=== PATIENT | female | born 1990 | race Caucasian/White ===

== ENCOUNTER 2019-01-08 16:35 | Outpatient (CLI) | payer OTHER ==
--- NOTE | 2019-01-08 18:32 | Non Stress Test Report ---
Non Stress Test Datetime Report Generated by CPN: 01/08/2019 18:32 DEMOGRAPHIC EGA NST: 35.1 INDICATION Indication for Study: Ordered by Provider; Other Indication for Study (NST) Other: cholestasis repeat NST from office VITAL SIGNS Temperature - NST: 98.2 Pulse - NST: 67 RESP - NST: 16 NBPSYS NST: 108 NBPDIA NST: 58 MONITORING Monitor Explained: Monitor Explained; Test Explained; Patient Verbalized Understanding Time on Monitor: 01/08/2019 16:49 Time off Monitor: 01/08/2019 17:22 NST Duration: 33 NST INTERVENTIONS NST Interventions: PO Hydration; Reposition Patient; Vibroacoustic Stim BABY A: [id number] BABY A Movement : Present Contraction Frequency : denies FHR Baseline : 120 Accelerations : 15X15 Decelerations : None Variability : Moderate 6-25bpm NST Review: Meets Criteria for Reactive NST NST Review and Verified By : JACQUELIN Worley Results: Reactive NST REPORT Report Trigger: Send Report
== END 2019-01-08 17:30 | disposition home or self-care (01) ==
LOC: LC 16:35
PROVIDERS: ATTEND Student in an Organized Health Care Education/Training Program
PROC: 4A1HXCZ Monitoring of Products of Conception, Cardiac Rate, External Approach (ICD-10-PCS; principal; 2019-01-08)
DX: Z3A.35 35 weeks gestation of pregnancy (principal)
CPT/HCPCS: 59025

== ENCOUNTER 2019-01-10 14:44 | Outpatient (CLI) | payer OTHER ==
--- NOTE | 2019-01-10 16:29 | Non Stress Test Report ---
Non Stress Test Datetime Report Generated by CPN: 01/10/2019 16:29 DEMOGRAPHIC EGA NST: 35.3 INDICATION Indication for Study: Ordered by Provider; Other Indication for Study (NST) Other: cholestasis, repeat nst from office VITAL SIGNS Temperature - NST: 98.4 Pulse - NST: 73 RESP - NST: 17 NBPSYS NST: 110 NBPDIA NST: 69 MONITORING Monitor Explained: Monitor Explained; Test Explained; Patient Verbalized Understanding Time on Monitor: 01/10/2019 15:12 Time off Monitor: 01/10/2019 16:08 NST Duration: 56 NST INTERVENTIONS NST Interventions: PO Hydration; Reposition Patient; Vibroacoustic Stim Physician Notified NST: NSaurabh, CNM BABY A: [id number] BABY A Movement : Present Contraction Frequency : irregular FHR Baseline : 120 Accelerations : 15X15 Decelerations : None Variability : Moderate 6-25bpm NST Review: Meets Criteria for Reactive NST NST Review and Verified By : Lissette Camp RNDC NST Results: Reactive NST REPORT Report Trigger: Send Report
== END 2019-01-10 16:10 | disposition home or self-care (01) ==
LOC: LC 14:44
PROVIDERS: ATTEND Obstetrics & Gynecology Gynecology
PROC: 4A1HXCZ Monitoring of Products of Conception, Cardiac Rate, External Approach (ICD-10-PCS; principal; 2019-01-10)
DX: O99.613 Diseases of the digestive system complicating pregnancy, third trimester (principal); Z3A.35 35 weeks gestation of pregnancy
CPT/HCPCS: 59025; 87077; 87081

== ENCOUNTER 2019-01-14 21:56 | Inpatient (IN) | payer OTHER ==
[2019-01-14] MEDS ORDERED: DINOPROSTONE 10 MG VAGINAL INSERT.SR PV PRN (22:23)
[2019-01-14] MEDS ORDERED: RINGERS SOLUTION,LACTATED 1,000 ML IV PRN (22:23)
[2019-01-14] MEDS ORDERED: RINGERS SOLUTION,LACTATED 300 ML IV ONE (22:40)
[2019-01-14 23:08] LABS: APPEARANCE,URINE CLOUDY; BILIRUBIN,URINE SMALL (NEGATIVE); COLOR,URINE AMBER; GLUCOSE, URINE NEGATIVE (NEGATIVE); KETONES,URINE NEGATIVE (NEGATIVE); LEUKOCYTE ESTERASE,URINE LARGE (NEGATIVE); NITRITE,URINE NEGATIVE (NEGATIVE); PROTEIN,URINE 30 mg/dL (NEGATIVE); URINE SPECIFIC GRAVITY 1.031
[2019-01-14] MEDS ORDERED: DINOPROSTONE 10 MG VAGINAL INSERT.SR ONE (23:14)
[2019-01-14 23:15] LABS: ABSOLUTE LYMPHOCYTES (AUTO) 1.4 10^3/uL (0.5-4.7); ABSOLUTE MONOCYTES (AUTO) 0.6 10^3/uL (0.1-1.4); ABSOLUTE NEUT (AUTO) 4.7 10^3/uL (1.7-8.2); BASOPHILS % (AUTO) 0.3 % (0-2); EOSINOPHILS % (AUTO) 0.5 % (0-6); HEMATOCRIT 32.2 % (36.0-47.0); HEMOGLOBIN 10.6 g/dL (12.0-15.5); LYMPHOCYTES % (AUTO) 21.1 % (13-45); MEAN CORPUSCULAR HEMOGLOBIN 29.8 pg (27.0-33.4); MEAN CORPUSCULAR VOLUME 90 fl (80-97); MONOCYTES % (AUTO) 8.7 % (3-13); RED BLOOD COUNT 3.57 10^6/uL (3.72-5.28); RED CELL DISTRIBUTION WIDTH 13.7 % (11.5-14.0); SEGMENTED NEUTROPHILS % (AUTO) 69.4 % (42-78); TOTAL CELLS COUNTED % (AUTO) 100 %; WHITE BLOOD COUNT 6.7 10^3/uL (4.0-10.5)
[2019-01-14 23:34] LABS: PLATELET COUNT 165 10^3/uL (150-450)
[2019-01-14 23:36] LABS: URINE AMPHETAMINES SCREEN NEGATIVE; URINE BARBITURATES SCREEN NEGATIVE; URINE BENZODIAZEPINES SCREEN NEGATIVE; URINE COCAINE SCREEN NEGATIVE; URINE MARIJUANA (THC) SCREEN NEGATIVE; URINE METHADONE SCREEN NEGATIVE; URINE PHENCYCLIDINE SCREEN NEGATIVE
[2019-01-15] MEDS ORDERED: ZOLPIDEM TARTRATE 5 MG TABLET ONE (01:37)
[2019-01-15] MEDS ORDERED: ZOLPIDEM TARTRATE 5 MG TABLET PO PRN ×2 (01:38→08:10)
[2019-01-15] MEDS ORDERED: PROMETHAZINE HCL INJ 25 MG/1 ML VIAL ONE (03:08)
[2019-01-15] MEDS ORDERED: NALBUPHINE HCL INJ 10 MG/1 ML AMPULE ONE (03:08)
[2019-01-15] MEDS ORDERED: NALBUPHINE HCL INJ 10 MG/1 ML AMPULE INJ ONE (03:30)
[2019-01-15] MEDS ORDERED: PROMETHAZINE HCL INJ 25 MG/1 ML VIAL IV ONE (03:30)
[2019-01-15] MEDS ORDERED: PENICILLIN G-K 5 MILLION UNIT VIAL ONE (07:16)
[2019-01-15] MEDS ORDERED: OXYTOCIN/NORMAL SALINE 20 UNIT/1,000 ML RTUINJ ONE (07:24)
[2019-01-15] MEDS ORDERED: MISOPROSTOL 0.2 MG TABLET ONE (07:24)
[2019-01-15] MEDS ORDERED: LIDOCAINE 1% INJ-PF (10 MG/ML) 30 ML SDV ONE (07:24)
--- NOTE | 2019-01-15 07:46 | Admission Physical ---
Datetime Report Generated by CPN: 01/15/2019 07:45 CURRENT ADMISSION Chief Complaint: Scheduled Induction of Labor Indication for Induction: Other Indication for Induction- Other: cholestasis of Admit Impression : , Intrauterine ; Induction of Labor Admit Plan: Admit to Unit; Initiate Labor Induction Protocol ALLERGIES Medication Allergies: No Medication Allergies: No Known Allergies (01/14/2019) Latex: No Latex Allergies Food Allergies: none (01/10/19) Environmental Allergies: none (01/10/19) OBSTETRICAL HISTORY EDC: 02/11/2019 00:00 : 1 Para: 0 Term: 0 : 0 SAB: 0 IAB: 0 Ectopic: 0 Livin Cesareans: 0 VBACs: 0 Multiple Births: 0 Gestational Diabetes: No Rh Sensitization: No Incompetent Cervix: No DARWIN: No Infertility: No ART Treatment: No Uterine Anomaly: No IUGR: No Hx Previous C/S: No Macrosomia: No Hx Loss/Stillborn: No PIH: No Hx : No Placenta Previa/Abruption: No Depression/PP Depression: Yes PTL/PROM: No Post Hemorrhage: No Current Procedures: Ultrasound; NST Obstetrical History Comments: g1; IUP at 35.3 with cholestasis, planned induction at 36 weeks. SEE RECORDS Alcohol: No Marijuana : No Cocaine: No Other Illicit Drugs: No Cigarettes: Never Smoker. 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 has hx of depression, currently on prozac for anxiety. INFECTIOUS HISTORY Gonorrhea: No Genital Herpes: No Chlamydia: No Tuberculosis: No Syphilis: No Hepatitis: No HIV/AIDS Exposure: No Rash or Viral Illness: No HPV: No PHYSICAL EXAM General: Normal HEENT: Normal Neurologic: Normal Thyroid: Normal Heart: Normal Lungs: Normal Breast: Normal Back: Normal Abdomen: Normal Genitourinary Exam: Normal Extremities: Normal DTRs: Normal Pelvic Type: Adequate Vital Signs: Reviewed VAGINAL EXAM Dilatation: 2 Effacement: 50 Station: -3 MEMBRANES Pooling: Negative Membranes: Intact FETUS A EGA: 36.1 Monitoring: External US FHR- Baseline: 130 Variability: Moderate 6-25bpm Accelerations: 15X15 Decelerations: None FHR Category: Category I Estimated Weight (gm): 3300 Presentation: Vertex PLANS FOR LABOR AND DELIVERY Labor and Delivery: Plan Pain Management: None Feeding Preference: Formula Benefit of Breast Feed Discussed: Yes Circumcision: N/A INFORMED CONSENT Signature: with User ID: [email or web address]
[2019-01-15] MEDS ORDERED: ACETAMINOPHEN WITH CODEINE #3 TABLET PO PRN ×2 (08:10)
[2019-01-15] MEDS ORDERED: NA PHOS,M-B/NA PHOS,DI-BA (ADULT) 133 ML ENEMA PR PRN (08:10)
[2019-01-15] MEDS ORDERED: PROMETHAZINE HCL 25 MG TABLET PO PRN (08:10)
[2019-01-15] MEDS ORDERED: BENZOCAINE/MENTHOL AEROSOL SPRAY 56 ML TOP PRN (08:10)
[2019-01-15] MEDS ORDERED: DIPHENHYDRAMINE HCL 25 MG CAPSULE PO PRN (08:10)
[2019-01-15] MEDS ORDERED: PROMETHAZINE HCL INJ 25 MG/1 ML VIAL IV PRN (08:10)
[2019-01-15] MEDS ORDERED: GLYCERIN/WITCH HAZEL LEAF 1 EACH MED..WIPE TP PRN (08:10)
[2019-01-15] MEDS ORDERED: DIPH/PERTUSS(ACELL)/TETANUS VAC/PF 0.5 ML SYR (>=10YO) IM PRN (08:10)
[2019-01-15] MEDS ORDERED: ACETAMINOPHEN 650 MG SUPP.RECT PR PRN (08:10)
[2019-01-15] MEDS ORDERED: PROMETHAZINE HCL 25 MG SUPP.RECT PR PRN (08:10)
[2019-01-15] MEDS ORDERED: MEASLES,MUMPS&RUBELLA VACC/PF 0.5 ML VIAL SUBCUT PRN (08:10)
[2019-01-15] MEDS ORDERED: DIBUCAINE 1% OINTMENT 56 GM TP PRN (08:10)
[2019-01-15] MEDS ORDERED: OXYTOCIN/NORMAL SALINE 20 UNIT/1,000 ML RTUINJ IV PRN (08:10)
[2019-01-15] MEDS ORDERED: MAGNESIUM HYDROXIDE SUSP 30 ML UDCUP PO PRN (08:10)
[2019-01-15] MEDS ORDERED: PSEUDOEPHEDRINE HCL 30 MG TABLET PO PRN (08:10)
[2019-01-15] MEDS: DOCUSATE SODIUM 100 MG CAPSULE PO SCH ×2 (11:53→17:19)
[2019-01-15] MEDS: FERROUS SULFATE 325 MG TABLET PO SCH ×2 (11:53→17:19)
[2019-01-15] MEDS: PRENATAL VITAMIN W DHA CAPSULE PO SCH (11:53)
[2019-01-15] MEDS: SENNOSIDES/DOCUSATE 8.6-50 MG 1 EACH TABLET PO SCH (11:53)
[2019-01-15] MEDS: FAMOTIDINE 20 MG TABLET PO SCH ×2 (11:53→21:34)
[2019-01-15] MEDS: IBUPROFEN 800 MG TABLET PO SCH ×2 (14:09→21:35)
[2019-01-16] MEDS: IBUPROFEN 800 MG TABLET PO SCH ×3 (05:41→22:00)
[2019-01-16 06:26] LABS: HEMATOCRIT 31.8 % (36.0-47.0); HEMOGLOBIN 10.6 g/dL (12.0-15.5); MEAN CORPUSCULAR HEMOGLOBIN 30.2 pg (27.0-33.4); MEAN CORPUSCULAR HGB CONC 33.2 g/dL (32.0-36.0); MEAN CORPUSCULAR VOLUME 91 fl (80-97); PLATELET COUNT 120 10^3/uL (150-450); RED CELL DISTRIBUTION WIDTH 13.7 % (11.5-14.0); WHITE BLOOD COUNT 10.8 10^3/uL (4.0-10.5)
[2019-01-16] MEDS: FERROUS SULFATE 325 MG TABLET PO SCH ×2 (09:25→17:41)
[2019-01-16] MEDS: SENNOSIDES/DOCUSATE 8.6-50 MG 1 EACH TABLET PO SCH (09:25)
[2019-01-16] MEDS: DOCUSATE SODIUM 100 MG CAPSULE PO SCH ×2 (09:25→17:41)
[2019-01-16] MEDS: PRENATAL VITAMIN W DHA CAPSULE PO SCH (09:25)
[2019-01-16] MEDS: FAMOTIDINE 20 MG TABLET PO SCH ×2 (09:25→23:34)
--- NOTE | 2019-01-16 16:36 | PDOC PROGRESS REPORT ---
Subjective-OB Progress Note for:: 01/16/19 Subjective: reports bleeding slowing, pain controlled with current meds, denies needs Physical Exam (OB) Vital Signs: Temp Pulse Resp BP Pulse Ox 97.5 F 53 L 15 119/78 97 01/16/19 07:55 01/16/19 07:55 01/16/19 07:55 01/16/19 07:55 01/16/19 07:55 Intake & Output 01/15/19 01/16/19 01/17/19 06:59 06:59 06:59 Intake Total 240 Balance 240 Weight 58.4 kg - Abdomen Description: Soft Hernia Present: No Fundal Description: Firm, Midline Fundal Height: u/u - u/2 - Extremities Lower extremities: Perfecto's sign - neg Calf: Normal, Nontender Objective-Diagnostic Laboratory: 01/16/19 06:20 01/16/19 06:20 WBC 10.8 H RBC 3.50 L Hgb 10.6 L Hct 31.8 L MCV 91 MCH 30.2 MCHC 33.2 RDW 13.7 Plt Count 120 L Assessment and Plan(PN) - Assessment and Plan (1) Normal vaginal delivery Is this a current diagnosis for this admission?: Yes - Time Spent with Patient Time with patient: Less than 15 minutes - Disposition Anticipated Discharge: Home Within: within 24 hours
[2019-01-17] MEDS: IBUPROFEN 800 MG TABLET PO SCH (06:00)
[2019-01-17 09:18] VITALS: BP 127/85
[2019-01-17] MEDS: FERROUS SULFATE 325 MG TABLET PO SCH (10:48)
[2019-01-17] MEDS: DOCUSATE SODIUM 100 MG CAPSULE PO SCH (10:48)
[2019-01-17] MEDS: FAMOTIDINE 20 MG TABLET PO SCH (10:48)
[2019-01-17] MEDS: SENNOSIDES/DOCUSATE 8.6-50 MG 1 EACH TABLET PO SCH (10:48)
[2019-01-17] MEDS: PRENATAL VITAMIN W DHA CAPSULE PO SCH (10:48)
--- NOTE | 2019-01-17 13:03 | PDOC DISCHARGE SUMMARY ---
Final Diagnosis Discharge Date: 01/17/19 Discharge Data - Discharge Medication Home Medications: Ursodiol [Actigall 300 mg Capsule] 300 mg PO TID 01/08/19 Fluoxetine HCl [Prozac] 40 mg PO DAILY 01/10/19 Pnv No.103/Folic/Om3s/Fish Oil [ Gummies] 1 each PO DAILY 01/10/19 Reason(s) for Admission: Induction of Labor Procedures: NST Intrapartum Procedure(s): Spontaneous Vaginal Delivery Laceration-Degree: 1st - Diagnosis Test Laboratory: Temp Pulse Resp BP Pulse Ox 97.7 F 65 16 127/85 H 100 01/17/19 10:28 01/17/19 10:28 01/17/19 10:28 01/17/19 08:43 01/17/19 10:28 01/14/19 01/14/19 01/16/19 22:05 22:05 06:20 RBC 3.57 L 3.50 L Hgb 10.6 L 10.6 L Hct 32.2 L 31.8 L Urine Opiates Screen NEGATIVE - Discharge information/Instructions Discharge Activity: Activity As Tolerated, Balance Activity w/Rest, Pelvic Rest Discharge Diet: Regular Disposition: HOME, SELF-CARE Follow up with: [facility] in: 4, Weeks
--- NOTE | 2019-01-28 08:59 | Delivery Summary ---
Del Sum A-C Datetime Report Generated by CPN: 01/28/2019 08:59 DELIVERY PERSONNEL DELIVERY PERSONNEL: [id number] Delivery Doctor:: Kaylin De Los Santos MD Labor and Delivery Nurse:: Lily Bingham RN Labor and Delivery Nurse:: MANDY [facility] Pharmacy Director:: Kiki Banks RN Neonatal Nurse Practitioner:: GUNNAR Coffey Nursery Nurse:: Kath Dumont RN Nursery Nurse:: Kaylan Severino RN Broom Stitcher/MEDIA ANALYTICS MANAGER: Rosi Hurd ST Additional Personnel: : Ginger Parikh RN MATERNAL INFORMATION Delivery Anesthesia: None Delivery Anesthesia: Local Medications After Delivery: Pitocin Bolus-Please Comment; Cytotec 1000mcg Per Rectum/Vagina Maternal Complications: None LABOR SUMMARY EDC: 02/11/2019 00:00 No. Babies in Womb: 1 LABOR INFORMATION Reason for Induction: Other Reason for Induction- Other: cholestasis Onset of Labor: 01/15/2019 05:00 Complete Dilatation: 01/15/2019 07:20 Cervical Ripening Agents: Cervidil Group B Beta Strep: positive Steroids Given: None MEMBRANES Membranes Rupture Method: Spontaneous Rupture of Membranes: 01/15/2019 07:25 Length of Rupture (hr): 0.03 Amniotic Fluid Color: Clear Amniotic Fluid Amount: Small Amniotic Fluid Odor: None STAGES OF LABOR Stage 1 hr: 2 Stage 1 min: 20 Stage 2 hr: 0 Stage 2 min: 7 Stage 3 hr: 0 Stage 3 min: 3 Total Time in Labor hr: 2 Total Time in Labor min: 30 VAGINAL DELIVERY Episiotomy: None Laceration #1: Perineal Laceration Extension #1: Second Degree Laceration Repair: Yes Laceration Repair Note: 2-0 chromic BABY A INFORMATION Delivery Date/Time: 01/15/2019 07:27 Method of Delivery: Vaginal Born in Route : No : N/A Forceps: N/A Vacuum Extraction: N/A Shoulder Dystocia : No PRESENTATION/POSITION BABY A Presentation: Cephalic Cephalic Presentation: Vertex Breech Presentation: N/A PLACENTA INFORMATION BABY A Placenta Delivery Time : 01/15/2019 07:30 Placenta Method of Delivery: Spontaneous Placenta Status: Delivered SCORES BABY A Heart Rate 1 min: Slow, Below 100 bpm Resp Effort 1 min: Absent Reflex Irritability 1 min: No Response Muscle Tone 1 min: Flaccid Color 1 min: Blue/Pale Resuscitation Effort 1 min: Tactile Stimulation; Oxygen; PPV/NCPAP SCORE 1 MIN: 1 Heart Rate 5 min: >100 bpm Resp Effort 5 min: Slow, Irregular Reflex Irritability 5 min: No Response Muscle Tone 5 min: Some Flexion of Extremities Color 5 min: Blue/Pale Resuscitation Effort 5 min: Tactile Stimulation; Oxygen; PPV/NCPAP SCORE 5 MIN: 4 Heart Rate 10 min: >100 bpm Resp Effort 10 min: Good Cry Reflex Irritability 10 min: [place] Muscle Tone 10 min: Active Motion Color 10 min: Body [place], Extremities Blue SCORE 10 MIN: 8 INFORMATION BABY A Gestational Age at Delivery: 36.0 Gestational Status: Late - 34- 36.6 Weeks Infant Outcome : Liveborn Infant Condition : Stable Sex: Female IDENTIFICATION BABY A Infant Verification Date/Time: 01/15/2019 07:59 ID Band Number: [id number] Mother's Name Verified: Yes RN Verifying : PILLO Additional Verifying Personnel: ELY WEIGHT/LENGTH BABY A Infant Birthweight (gm): 2679 Infant Weight (lb): 5 Infant Weight (oz): 14 Length (in): 19.00 Length (cm): 48.26 CORD INFORMATION BABY A No. Cord Vessels: 3 Nuchal Cord : N/A Suction: Mouth; Nose; Pharynx ASSESSMENT BABY A Complications: Multiple Variable Decels Skin to Skin: Yes (Annotations: briefly) Skin to Skin: Yes Skin to Skin Time (min): 2 Infant Care By: Maribel Dumont/ Coy MAHER Transferred To: NICU SIGNATURES Signature: with User ID: [email or web address]
== END 2019-01-17 14:31 | disposition home or self-care (01) | DRG 805 ==
LOC: LR 21:56 → 2S 01-15 10:27
PROVIDERS: ADMIT Obstetrics & Gynecology; ATTEND Obstetrics & Gynecology
PROC: 4A1HXCZ Monitoring of Products of Conception, Cardiac Rate, External Approach (ICD-10-PCS; 2019-01-14)
PROC: 3E0P7VZ Introduction of Hormone into Female Reproductive, Via Natural or Artificial Opening (ICD-10-PCS; 2019-01-14)
PROC: 10E0XZZ Delivery of Products of Conception, External Approach (ICD-10-PCS; principal; 2019-01-15)
PROC: 0KQM0ZZ Repair Perineum Muscle, Open Approach (ICD-10-PCS; 2019-01-15)
DX: O26.62 Liver and biliary tract disorders in childbirth (principal); K83.1 Obstruction of bile duct; Z37.0 Single live birth; O99.343 Other mental disorders complicating pregnancy, third trimester; F32.9 Major depressive disorder, single episode, unspecified; F41.9 Anxiety disorder, unspecified; O99.824 Streptococcus B carrier state complicating childbirth; O70.1 Second degree perineal laceration during delivery; Z3A.36 36 weeks gestation of pregnancy
CPT/HCPCS: 36415; 80307; 81005; 85025; 85027; 86592; 86850; 86900; 86901; 99465; J2300; J2540; J2550; J2590; J3490